=== PATIENT | male | born 2000 | race Caucasian/White ===

== ENCOUNTER → 2019-11-16 09:10 | Outpatient (CLI) | payer OTHER, SELFPAY ==
--- NOTE | ~2019-11-16 | XR_ITS ---
XR lumbar spine 2-3V DATE: 11/16/2019 09:35 INDICATION: Chronic low back pain. Radiating pain. TECHNIQUE: Standing AP, lateral, coned lateral lumbosacral views COMPARISON: None FINDINGS: There is mild levoscoliosis of the thoracolumbar spine. No fracture or bone destruction. The lumbar and included lower thoracic pedicles are intact. Lumbar and lumbosacral interspaces are well preserved. The sacroiliac joints are normal. IMPRESSION: Mild levoscoliosis Reviewed, dictated and finalized at location B. IMPRESSION: Mild levoscoliosis
== END ==
DX: M54.5 Low back pain (principal)
CPT/HCPCS: 72100

== ENCOUNTER 2024-04-25 15:34 | Outpatient (CLI) | payer OTHER, SELFPAY ==
--- NOTE | ~2024-04-25 | XR_ITS ---
3 VIEWS LUMBAR SPINE Ordering provider: Tatiana Garcia APRN History: . M54.41 - Lumbago with sciatica, right side . Comparison: November 16, 2019 FINDINGS: VERTEBRAL BODIES: No visible fracture or subluxation. Mild levoscoliosis. DISK SPACES: Normal. SOFT TISSUES: Normal. IMPRESSION: No acute osseous abnormality lumbar spine. Reviewed, dictated and finalized at location A.
== END 2024-04-25 15:35 | disposition home or self-care (01) ==
PROVIDERS: PCP Family Medicine; Visit Provider Nurse Practitioner Adult Health
DX: M54.41 Lumbago with sciatica, right side (principal); M54.42 Lumbago with sciatica, left side; G89.29 Other chronic pain
CPT/HCPCS: 72100